=== PATIENT | male | born 1975 | race Two or more races ===

== ENCOUNTER → 2020-09-02 | Outpatient (CLI) | payer BC ==
[2015-06-05 11:45] VITALS: BP 125/73
[~2020-09-02] MED LIST: METF10007 PO; [UNRECOGNIZED DRUG - OTHER]
--- NOTE | 2020-09-02 10:45 | RAD ---
EXAM: Abdomen sonogram. HISTORY: Pain. TECHNIQUE: Sonographic imaging of the abdomen was performed. COMPARISON: 04/29/2015. FINDINGS: The liver is upper normal in size. There is hepatic steatosis. No focal hepatic lesion is s een. There is gallbladder sludge. There is no evidence of gallstones. The common bile duct is normal in caliber. The kidneys are unremarkable. The spleen is enlarged, measuring 15.1 cm. The pancreas, in ferior vena cava and aorta are partially obscured due to patient body habitus. IMPRESSION: 1. Hepatic steatosis and upper normal liver size. 2. Gallbladder sludge. 3. Hepatomegaly. 4. Partially obscured midline structures. Electronically signed by: Michelle Lehman MD (09/02/2020 10:42 AM) [id number]
== END ==
LOC: US 09:59
PROVIDERS: ATTEND Family Medicine
DX: K76.0 Fatty (change of) liver, not elsewhere classified (principal); R16.2 Hepatomegaly with splenomegaly, not elsewhere classified; K82.8 Other specified diseases of gallbladder
CPT/HCPCS: 76700

== ENCOUNTER → 2021-03-17 | Outpatient (CLI) | payer BC ==
[2015-06-05 11:45] VITALS: BP 125/73
--- NOTE | 2021-03-17 08:13 | RAD ---
EXAM: ULTRASOUND ABDOMEN COMPLETE CLINICAL HISTORY: Abnormal liver function laboratory values. COMPARISON: None available. TECHNIQUE: Ultrasound of the upper abdomen was performed. FINDINGS: The liver is mildly enlarged. There is hepatic steatosis. No focal hepatic lesion is seen. The gallbladder is unremarkable. The common bile duct is normal in caliber. The kidneys are unremarka ble. The pancreas is unremarkable. There is an enlarged spleen, measuring 15.1 cm in maximum dimensio n. The aorta is normal in caliber. The inferior vena cava is patent. IMPRESSION: 1. Hepatomegaly and hepatic steatosis. 2. Splenomegaly. Electronically signed by: Michelle Lehman MD (03/17/2021 8:11 AM) [id number]
== END ==
LOC: US 06:55
PROVIDERS: ATTEND Internal Medicine Gastroenterology
DX: R16.0 Hepatomegaly, not elsewhere classified (principal); R16.1 Splenomegaly, not elsewhere classified; K76.0 Fatty (change of) liver, not elsewhere classified
CPT/HCPCS: 76700